=== PATIENT | male | born 1990 | race African-American/Black ===

== ENCOUNTER 2019-08-06 20:12 | Emergency (ER) | payer OTHER ==
[~2019-08-06] VITALS: Ht 193 cm; Wt 54.4 kg
[2019-08-06 20:15] VITALS: BP 134/79
[2019-08-06] MEDS ORDERED: CLARITIN10 M3 PO (20:19)
== END 2019-08-06 21:50 | disposition home or self-care (01) ==
LOC: ER 20:12
DX: R07.89 Other chest pain (principal); R09.89 Other specified symptoms and signs involving the circulatory and respiratory systems; J45.909 Unspecified asthma, uncomplicated; F17.210 Nicotine dependence, cigarettes, uncomplicated; Z79.899 Other long term (current) drug therapy; Z91.048 Other nonmedicinal substance allergy status